=== PATIENT | male | born 1940 | race Caucasian/White ===

== ENCOUNTER 2016-06-09 09:31 | Inpatient (IN) | payer OTHER ==
[2016-06-09] MEDS ORDERED: ASPIRIN EC 325 MG TAB PO ONE (09:43)
[2016-06-09] MEDS ORDERED: FAMOTIDINE 20 MG TAB PO ONE (09:43)
[2016-06-09] MEDS ORDERED: diphenhydrAMINE 25 MG CAP PO ONE (09:43)
[2016-06-09] MEDS ORDERED: NS 1,000 ML IV ONE (09:43)
[2016-06-09] MEDS ORDERED: DIAZEPAM 5 MG TAB PO ONE (09:43)
--- NOTE | 2016-06-09 10:08 | CPEKG ---
Heart Rate: 69 RR Interval: 870 P-R Interval: 116 QRSD Interval: 114 QT Interval: 432 QTC Interval: 463 P [place]: -36 QRS [place]: -60 T Wave [place]: 55 EKG Severity - ABNORMAL ECG - EKG Impression: SINUS RHYTHM EKG Impression: LEFT ANTERIOR FASCICULAR BLOCK EKG Impression: LEFT VENTRICULAR HYPERTROPHY Electronically Signed By: Dustin Calix 09-Jun-2016 16:10:48
[2016-06-09 10:18] LABS: % IMMATURE GRANULYOCYTES 0.4 % (0.0-1.1); ABSOLUTE IMMATURE GRANULOCYTES 0.02 10^3/uL (0.00-0.10); ADD DIFF? NO; ADD MORPH? NO; ADD SCAN? NO; ATYPICAL LYMPHOCYTE FLAG 10 (0-99); FRAGMENT RBC FLAG 0 (0-99); HEMATOCRIT 47.2 % (40.0-51.0); HEMOGLOBIN 15.8 g/dL (13.7-17.5); LEFT SHIFT FLG 0 (0-99); LIPEMIA HEMOLYSIS FLAG 80 (0-99); MEAN CELL HEMOGLOBIN 31.7 pg (27.9-34.1); MEAN CELL HEMOGLOBIN CONCENTR. 33.5 g/dL (32.4-36.7); MEAN CELL VOLUME 94.6 fL (81.5-99.8); MEAN PLATELET VOLUME 11.2 fL (8.7-11.7); PLATELET CLUMPS FLAG 0 (0-99); PLATELET COUNT 178 10^3/uL (150-400); RED BLOOD CELL COUNT 4.99 10^6/uL (4.40-6.38); RED CELL DISTRIBUTION WIDTH 12.7 % (11.5-15.2)
[2016-06-09 10:27] LABS: PROTIME(PATIENT) 13.1 SEC (12.0-15.0)
[2016-06-09 10:53] LABS: ANION GAP 11 mEq/L (8-16); CALCIUM 9.9 mg/dL (8.5-10.4); CARBON DIOXIDE 23 mEq/l (22-31); CHLORIDE 109 mEq/L (97-110); CHOLESTEROL 229 mg/dL (140-220); CHOLESTEROL/HDL RATIO 4.49 RATIO (1.00-4.97); CREATININE 1.2 mg/dL (0.7-1.3); GLOMERULAR FILTRATION RATE 59; GLUCOSE 98 mg/dL (70-100); HIGH DENSITY LIPOPROTEIN 51 mg/dL (40-65); LDL/HDL RATIO 3.02 RATIO (1.00-3.64); LOW DENSITY LIPOPROTEIN 154 mg/dL (80-100); NON-HIGH DENSITY LIPOPROTEIN 178 mg/dL (90-129); POTASSIUM 4.4 mEq/L (3.5-5.2); SODIUM 143 mEq/L (134-144); TRIGLYCERIDE 123 mg/dL (40-150); VERY LOW DENSITY LIPOPROTEINS 24 mg/dL (8-25)
[2016-06-09] MEDS ORDERED: HEPARIN 10,000 UNIT/10 ML MDV ONE (11:55)
[2016-06-09] MEDS ORDERED: MIDAZOLAM 2 MG/2 ML VIAL ONE (11:55)
[2016-06-09] MEDS ORDERED: LIDOCAINE 1% 30 ML SDV ONE (11:55)
[2016-06-09] MEDS ORDERED: fentaNYL 100 MCG/2 ML INJ ONE (11:55)
[2016-06-09] MEDS ORDERED: VERAPAMIL 5 MG/2 ML VIAL ONE (11:55)
[2016-06-09] MEDS ORDERED: IOPAMIDOL (ISOVUE 370) 100 ML BTL IV ONE (11:56)
--- NOTE | 2016-06-09 13:33 | PDDXCAT ---
Diagnostic Cath Note - . Date: 06/09/16 Intervention: None Indication: CCS Class I Angina, elevated coronary calcium score. *Procedure 1. left heart catheterization 2. coronary angiography 3. left ventriculogram Access: Right radial artery. A plethysmography trace assisted Gilberto's Test was used to document dual artery supply to the right hand and index finger prior to access. *Materials Left Heart Cath size: 5F Left Heart Cath materials: JL3.5, JR4.0, pigtail *Findings-Left Heart Catheterization LM: The left main is 6 mm in size and bifurcates into an LAD and circumflex system. There is no evidence of flow-limiting disease. LAD: There is a 100% occlusion of the LAD after the first diagonal takeoff with AGUS 0 flow. LCX: There is a 70% proximal left circumflex lesion with AGUS III flow as well as a tight lesion (90%) in the beta branch of the circumflex obtuse marginal branch. RCA: The RCA is dominant and 3.5 mm in size proximally. There is a 90% mid right coronary lesion with AGUS III flow. There is diffuse calcific atherosclerosis throughout a right dominant system. EDP: 17 mmHg LVEF: 45-50% Left ventriculogram findings: Mild distal anterior and basal inferior hypokinesis consistent with ischemic cardiomyopathy. The visualized portion of the thoracic aorta revealed three sinuses of Valsalva. There is no [place] evidence of aneurysm or dissection. *Summary Complications: None Estimated blood loss: <50ml Closure method: TR Band Assessment: Severe and flow-limiting [place] vessel coronary artery disease including a 100% occlusion of the LAD after the first diagonal takeoff (AGUS 0) , 70% proximal left circumflex (AGUS III) as well as a tight lesion in the beta branch of the left circumflex obtuse marginal 90% (AGUS III flow). There was also a 90% mid right coronary artery lesion (AGUS III). The patient had mild distal anterior and basal inferior hypokinesis with an ejection fraction of 45- 50% consistent with an ischemic cardiomyopathy. Surgical consultation to discuss the risks and benefits of coronary artery bypass grafting is recommended (specifically, LICONA to the LAD and grafts to the diagonal, circumflex obtuse marginal alpha and beta branches as jump grafts and a graft to the PDA of the right coronary artery).
[2016-06-09] MEDS ORDERED: ONDANSETRON 4 MG/2 ML VIAL IVP PRN (16:58)
[2016-06-09] MEDS ORDERED: ATROPINE SULFATE 1 MG/10 ML SYR IVP PRN (16:58)
[2016-06-09] MEDS ORDERED: ACETAMINOPHEN 325 MG TAB PO PRN (16:58)
[2016-06-09] MEDS ORDERED: ONDANSETRON DISINTEGRATING 4 MG TAB PO PRN (16:58)
[2016-06-09] MEDS ORDERED: NITROGLYCERIN 0.4 MG BTL SL PRN (16:58)
[2016-06-09] MEDS ORDERED: NS 1,000 ML IV SCH (17:00)
--- NOTE | 2016-06-10 06:52 | CPEKG ---
Heart Rate: 62 RR Interval: 968 P-R Interval: 132 QRSD Interval: 114 QT Interval: 436 QTC Interval: 443 P [place]: -30 QRS [place]: -59 T Wave [place]: 29 EKG Severity - ABNORMAL ECG - EKG Impression: SINUS RHYTHM EKG Impression: LEFT ANTERIOR FASCICULAR BLOCK Electronically Signed By: Dustin Calix 10-Jun-2016 08:27:03
--- NOTE | 2016-06-10 09:16 | SOAPPROG ---
SOLUIS Progress Note Assessment/Plan: Assessment/Plan: Timothy is a 76 y/o M who presented to our office with syncope x3 with injury. He had a cardiac catherization and was found to have severe multivessel disease with a 100% LAD, 70% proximal LCX, and 90% mid RCA. He is scheduled for a CABG with Dr. Zacarias tomorrow morning. He denies any chest discomfort, DUONG, presyncope or syncope. He has been monitored on tele and has remained in NSR. 06/10/16 09:16 Subjective: Pt denies any chest pain, SOB, presyncope, or syncope. He has no complaints at this time. Objective: Vital Signs Temp Pulse Resp BP Pulse Ox 36.6 C 66 12 124/76 H 97 06/10/16 07:43 06/10/16 07:43 06/10/16 07:43 06/10/16 07:43 06/10/16 07:43 Laboratory Results 06/09/16 10:15 06/09/16 10:15 06/09/16 06/10/16 06/11/16 05:59 05:59 05:59 Intake Total 300 Output Total 700 Balance -400 PT 13.1 SEC (12.0-15.0) 06/09/16 10:15 INR 1.00 (0.83-1.16) 06/09/16 10:15 tele- NSR EKG- NSR with diffuse T wave changes and LAFB - Pending Discharge Pending Discharge Within 24 Hours: No Pending Discharge Within 48 Hours: No Physical Exam - Physical Exam General Appearance: WD/WN Respiratory: lungs clear, normal breath sounds, No crackles, No wheezing Cardiac/Chest: normal peripheral pulses, regular rate, rhythm, other (right wrist is clean intact without infection) Extremities: No pedal edema Neuro/Psych: oriented x 3 ICD10 Worksheet Patient Problems: Problems Problem Status Onset CAD (coronary artery disease) Acute - ICD10 Problem Qualifiers (1) CAD (coronary artery disease) Qualifiers: Coronary Disease-Associated Artery/Lesion type: C [place] vs. transplanted heart: N Associated angina: A
[2016-06-10] MEDS ORDERED: ZOLPIDEM TARTRATE 5 MG TAB PO PRN (15:20)
[2016-06-10 16:07] LABS: HEMOGLOBIN A1C 5.8 % (4.0-6.0)
--- NOTE | 2016-06-10 16:17 | GCON ---
[f rep st] CONSULTATION DATE OF CONSULTATION: 06/09/2016 REFERRING PHYSICIAN: Dr. Up Patient is seen at the request of Dr. Up with the patient's permission. IMPRESSION: 1. Severe 3 vessel disease with likely remote myocardial infarction presenting as syncope. 2. Status post bilateral knee replacement. 3. Bilateral carpal tunnel release. 4. Cataract surgery. 5. Hernia surgery. 6. Penile implant. 7. Hyperlipidemia. 8. Hearing loss. RECOMMENDATIONS: This gentleman should undergo coronary artery revascularization on this admission. He has no easily identifiable warning signs when he has any ischemic event except syncope, of whic h he has had 3 episodes. He has critical 3-vessel disease with moderate LV dysfunction, and is agre eable to staying for surgery. Risks and complications were reviewed at length in detail with the jarek heredia and his . Our intention is to use 2 internal mammary arteries and vein taken endoscopically. Quoted risk is 1 % or less for stroke, , infection. Bleeding is a 2% to 3% risk. CHIEF COMPLAINT: This is 76-year-old gentleman who is quite active playing tennis on a regular aggr essive basis competitively. He has had 3 episodes of syncope in the last year, and the last one bro ught him to the emergency room at which point he complained of having severe nausea and diaphoresis prior to it. During one of the episodes, the doctor was present and felt his pulse and reported he could not feel for one. The patient was barriga and clammy. He was taken to the ER at that time. Mos t recent episode occurred while he was sitting down. His reports he suddenly turned barriga and l ost consciousness with his eyes open. He has not had any chest pain, pressure tightness, shortness of breath or cardiac symptoms. PREVIOUS MEDICAL HISTORY: As stated above. PREVIOUS SURGERIES: As stated above. MEDICATIONS: On admission were ibuprofen. ALLERGIES: Niacin and sulfonamide which caused a rash. FAMILY HISTORY: Noncontributory. REVIEW OF SYSTEMS: At the present time, he is entirely asymptomatic. All 10 systems were interroga iveth. Carotid ultrasound shows a 70% right carotid lesion which was asymptomatic. SOCIAL HISTORY: He drinks alcohol socially, never in excess. He has never smoked. Does not use il licit substances. He is , retired and has 3 daughters, I believe. PHYSICAL EXAMINATION: GENERAL: This is a slender, tall, athletic elderly gentleman, appears younge r than stated age. HEENT: Normocephalic. PERRLA. EOMI. NECK: Without bruit, adenopathy or thyr omegaly. HEART: Rate is regular without murmur. LUNGS: Clear. CARDIOVASCULAR: Echocardiogram r eveals trace aortic insufficiency with an EF of 45%. ABDOMEN: Soft, nontender. Bowel sounds are a ctive. RECTAL/GENITAL: Deferred. EXTREMITIES: Pedal pulses are 2+ and symmetrical. There is no edema. No varicosities. /[id number]/MODL
[2016-06-10] MEDS: ALPRAZolam 0.25 MG TAB PO SCH ×2 (16:25→21:07)
[2016-06-10] MEDS: SENNOSIDES/DOCUSATE SODIUM TAB PO SCH (20:08)
[2016-06-10] MEDS ORDERED: CHLORHEXIDINE GLUC HIBICLENS 118 ML BTL TP SCH (21:00)
[2016-06-10] MEDS: MUPIROCIN 2% 22 GM OINT NS SCH (21:06)
--- NOTE | 2016-06-11 00:57 | ECHO ---
[id number] + + [address] : : [place] [address] : : [phone] + + Adult Echocardiographic Report + -----+ :Name: KIKA HOYT LStudy Date: 06/10/2016 02:25 PM : : Hospital Admission Number: [id number] Location : 215: :: 1940 Gender: Male Height: 75 in : :Age: 76 yrs Race: WH Weight: 220 lb : :Reason For Study: Eval LV and Valves : : BSA: 2.3 meters2 : :History: Pre Op CABG : + -----+ MMode/2D Measurements \T\ Calculations IVSd: 0.71 cm LVIDd: 4.7 cm FS: 20.7 % LVLd ap4: 8.1 cm LVPWd: 1.0 cm LVIDs: 3.8 cm EDV(Teich): 104.4 mlEDV(MOD-sp4): 107.0 ml ESV(Teich): 60.4 ml LVLs ap4: 7.7 cm EF(Teich): 42.2 % ESV(MOD-sp4): 63.0 ml EF(MOD-sp4): 41.1 % SV(MOD-sp4): 44.0 ml Normal Measurement Values: + + :LVIDd (3.5-5.7cm) IVSd (0.6-1.1cm) LVPWd (0.6-1.1cm) Aortic Root (2.0-3.7cm)Left Atrium (1.5-4.0cm): :LV Vol(d) (76-115ml) LV Vol(s) (29-48ml) Ejec Fraction (50-65%)PV Al (0.6- 1.2m/s) TV Al (0.4-1.0m/s) : :MV E Al (0.8-1.0m/s)MV A Al (0.3-1.0m/s)LVOT Al (0.7-1.2m/s) Asc Ao Al ( 0.9-1.8m/s) : + + Doppler Measurements \T\ Calculations MV E max al: Ao V2 max: AI max al: LV V1 max: 56.8 cm/sec 129.0 cm/sec 244.3 cm/sec 109.6 cm/sec MV A max al: Ao max PG: AI max P.9 mmHgLV V1 max P.6 cm/sec 6.7 mmHg AI dec slope: 4.8 mmHg MV E/A: 0.83 Ao mean P.9 cm/sec2 7.1 mmHg AI P1/2t: 530.4 msec Ao V2 mean: 125.5 cm/sec Ao V2 VTI: 38.4 cm PA V2 max: 101.8 cm/sec PA max P.1 mmHg Left Ventricle The left ventricle is normal in size. There is normal left ventricular wall thickness. Ejection Fraction = 50%. There is Doppler evidence for diastolic dysfunction. There is apical septal hypokinesis. Right Ventricle The right ventricle is normal in size and function. Atria The left atrial size is normal. Right atrial size is normal. Mitral Valve The mitral valve is normal in structure and function. There is no mitral valve stenosis. There is no mitral regurgitation noted. Tricuspid Valve Normal tricuspid valve. No tricuspid regurgitation. Aortic Valve Mild Aortic Valve Calcification. There is no aortic stenosis. Trace aortic regurgitation. Pulmonic Valve The pulmonic valve is normal in structure and function. There is no pulmonic valvular regurgitation. Great Vessels The aortic root is normal size. Pericardium/Pleural There is no pericardial effusion. Conclusion A complete two-dimensional transthoracic echocardiogram was performed (2D, M-mode, Doppler and color flow Doppler). Apical septal hypokinesis. Ejection Fraction = 50%. Trace aortic regurgitation. There is no pericardial effusion. Final Reading Physician: Sarkis Madden signed on 06/11/2016 12:55 AM Ordering Physician: Rebekah Reed Performed By: Rehan Thorpe, CS
[2016-06-11] MEDS ORDERED: PROTAMINE SULFATE 50 MG/5 ML VIAL IVP ONE (04:41)
[2016-06-11] MEDS ORDERED: CALCIUM CHLORIDE 1 GM/10 ML INJ ONE ×2 (04:41→06:56)
[2016-06-11] MEDS ORDERED: DOPamine/DEXTROSE/250 ML BAG IV ONE (04:42)
[2016-06-11] MEDS ORDERED: MILRINONE/DEXTROSE/100 ML BAG IV ONE (04:42)
[2016-06-11] MEDS ORDERED: AMINOCAPROIC ACID 5 GM/20 ML VIAL ONE ×2 (04:42→06:57)
[2016-06-11] MEDS ORDERED: NA BICARBONATE 50 MEQ/50 ML VIAL ONE (04:42)
[2016-06-11] MEDS ORDERED: POTASSIUM Cl (KCl) 20 MEQ/50 ML BAG IV ONE (04:42)
[2016-06-11] MEDS ORDERED: AMIODARONE HCL 150 MG/3 ML VIAL ONE ×2 (04:43→06:58)
[2016-06-11] MEDS ORDERED: niCARdipine/NACL/200 ML BAG IV ONE (04:43)
[2016-06-11] MEDS ORDERED: ADENOSINE 6 MG/2 ML VIAL ONE (04:43)
[2016-06-11] MEDS ORDERED: ceFAZolin 1 GM VIAL ONE (04:44)
[2016-06-11] MEDS ORDERED: HEPARIN 10,000 UNIT/10 ML MDV ONE ×2 (04:44→06:58)
[2016-06-11 05:56] LABS: ANION GAP 9 mEq/L (8-16); CALCIUM 9.6 mg/dL (8.5-10.4); CARBON DIOXIDE 21 mEq/l (22-31); CHLORIDE 110 mEq/L (97-110); CREATININE 1.1 mg/dL (0.7-1.3); GLOMERULAR FILTRATION RATE > 60; GLUCOSE 92 mg/dL (70-100); SODIUM 140 mEq/L (134-144)
[2016-06-11] MEDS ORDERED: NS 1,000 ML IV ONE (06:00)
[2016-06-11] MEDS ORDERED: MANNITOL 25% 12.5 GM/50 ML VIAL IV ONE ×2 (06:00→09:00)
[2016-06-11] MEDS ORDERED: AMINOCAPROIC ACID 5 GM/20 ML VIAL IV ONE ×2 (06:00→07:00)
[2016-06-11] MEDS ORDERED: CITRATE DEXTROSE SOLN 500 ML BAG MISC ONE ×2 (06:00)
[2016-06-11] MEDS ORDERED: PHENYLEPHRINE HCL 50 MG in NS 250 ML IV ONE (06:00)
[2016-06-11] MEDS ORDERED: NOREPINEPHRINE BITARTRATE 16 MG in NS 250 ML IV ONE (06:00)
[2016-06-11] MEDS ORDERED: INSULIN REGULAR HUMAN 100 UNIT in NS 100 ML IV ONE (06:00)
[2016-06-11] MEDS ORDERED: SODIUM BICARBONATE 20 MEQ, LIDOCAINE 1% 10 ML in NORMOSOL-R 1,000 ML MISC ONE (06:00)
[2016-06-11] MEDS ORDERED: niCARdipine/NACL 200 ML IV ONE (06:00)
[2016-06-11] MEDS ORDERED: ceFAZolin 2 GM/DEXTROSE 100 ML IV ONE (06:00)
[2016-06-11] MEDS ORDERED: VERAPAMIL 5 MG, NITROGLYCERIN 2.5 MG, HEPARIN 500 UNIT, SODIUM BICARBONATE 0.2 MEQ in L... MISC ONE (06:00)
[2016-06-11] MEDS ORDERED: ALBUMIN 5% 250 ML BOTTLE IV ONE (06:56)
[2016-06-11] MEDS ORDERED: LIDOCAINE 2% 100 MG/5 ML SYR IVP ONE (06:57)
[2016-06-11] MEDS ORDERED: methylPREDNISolone SOD SUCC 1 GM/8 ML VIAL ONE (06:58)
[2016-06-11] MEDS ORDERED: MAGNESIUM SULFATE 1 GM/2 ML VIAL ONE (06:58)
[2016-06-11] MEDS ORDERED: PAPAVERINE HCL 60 MG/2 ML SDV ONE (06:59)
[2016-06-11] MEDS ORDERED: SKIN ADHESIVE (DERMABOND) 1 EACH TP ONE (06:59)
[2016-06-11] MEDS ORDERED: VERAPAMIL 5 MG/2 ML VIAL ONE (06:59)
[2016-06-11] MEDS ORDERED: CEFAZOLIN 2 GM/DEXTROSE/100 ML BAG IV ONE (07:14)
[2016-06-11] MEDS ORDERED: MIDAZOLAM 2 MG/2 ML VIAL ONE (07:49)
[2016-06-11] MEDS ORDERED: MINERAL OIL 10 ML VIAL TP ONE (07:55)
[2016-06-11] MEDS ORDERED: fentaNYL 250 MCG/5 ML INJ ONE ×2 (07:57)
[2016-06-11] MEDS ORDERED: PROPOFOL/EMULSION 500 MG/50 ML BOTTLE IV ONE (07:58)
[2016-06-11] MEDS: ALPRAZolam 0.25 MG TAB PO SCH (12:09)
[2016-06-11] MEDS: SENNOSIDES/DOCUSATE SODIUM TAB PO SCH ×2 (12:10→20:59)
[2016-06-11] MEDS: MUPIROCIN 2% 22 GM OINT NS SCH ×2 (12:10→21:00)
[2016-06-11] MEDS ORDERED: MAGNESIUM SULF 2 GM/WATER 50 ML BAG IV ONE (12:22)
[2016-06-11] MEDS ORDERED: SUGAMMADEX SODIUM 200 MG/2 ML VIAL IVP ONE (12:26)
[2016-06-11] MEDS ORDERED: PROPOFOL 200 MG/20 ML VIAL ONE (12:30)
[2016-06-11] MEDS ORDERED: fentaNYL 100 MCG/2 ML INJ ONE (12:40)
[2016-06-11] MEDS ORDERED: METOCLOPRAMIDE 10 MG/2 ML VIAL IVP PRN (12:58)
[2016-06-11] MEDS ORDERED: PANTOPRAZOLE SODIUM 40 MG in NS 100 ML IV ONE (12:58)
[2016-06-11] MEDS ORDERED: BISACODYL 10 MG SUPP PR PRN (12:58)
[2016-06-11] MEDS ORDERED: SODIUM CL NASAL 45 ML BTL EACHNARE PRN (12:58)
[2016-06-11] MEDS ORDERED: LACTULOSE 20 GM/30 ML UDCUP PO PRN (12:58)
[2016-06-11] MEDS ORDERED: D50W 25 GM/50 ML SYR IVP PRN (12:58)
[2016-06-11] MEDS ORDERED: POTASSIUM Cl (KCl) 50 ML IV PRN (12:58)
[2016-06-11] MEDS ORDERED: MAGNESIUM SULF 2 GM/WATER 50 ML IV ONE (12:58)
[2016-06-11] MEDS ORDERED: POLYETHYLENE GLYCOL 3350 17 GM PKT PO PRN (12:58)
[2016-06-11] MEDS ORDERED: fentaNYL 100 MCG/2 ML INJ IVP PRN (12:58)
[2016-06-11] MEDS ORDERED: ACETAMINOPHEN 325 MG TAB PO PRN (12:58)
[2016-06-11] MEDS ORDERED: CEPACOL LOZENGE PO PRN (12:58)
[2016-06-11] MEDS ORDERED: MEPERIDINE 25 MG/ML SYR IVP PRN (12:58)
[2016-06-11] MEDS ORDERED: ACETAMINOPHEN 650 MG SUPP PR PRN (12:58)
[2016-06-11] MEDS ORDERED: MAGNESIUM HYDROXIDE 30 ML UDCUP PO PRN (12:58)
[2016-06-11] MEDS ORDERED: INSULIN REGULAR HUMAN 100 UNIT in NS 100 ML IV SCH (13:00)
[2016-06-11] MEDS ORDERED: NS 1,000 ML IV SCH (13:00)
[2016-06-11] MEDS ORDERED: KETOROLAC 30 MG/1 ML SDV ONE (13:33)
[2016-06-11 13:44] LABS: BASE EXCESS -7.6 mEq/L (-2.5-2.5); BICARBONATE 19 mEq/L (22-26); MEASURED OXYGEN SATURATION 94 % (92-95); PCO2 45 mmHg (34-38); PO2 85 mmHg (65-75); TCO2 21 mEq/L (23-27)
[2016-06-11 13:46] LABS: END TIDAL CO2 38; O2 CONCENTRATIION 100 % (0-100); P/F RATIO 85 RATIO; SIMV YES
[2016-06-11 13:47] LABS: PATIENT RATE 0; PRESSURE SUPPORT 7
--- NOTE | 2016-06-11 13:48 | POSTOPPROG ---
Post Op Note Date of Operation: 06/11/16 Surgeon: Rafael Zacarias Soaker Meat: Shelby Anesthesiologist: Anish Anesthesia: GET(General Endotracheal) Pre-op Diagnosis: ASHD, ischemic CM Procedure: CAB 5 [place]iggins Dg, Amelia-ramus, SVG- [id number], PDA, atriclip RO, EVH Inf/Abcess present in the surg proc area at time of surgery?: No EBL: 50-100 Drains: Other (3 blakes)
--- NOTE | 2016-06-11 14:30 | GCON ---
[f rep st] CONSULTATION PROTOTYPE SEWER CONSULTATION REASON FOR ADMISSION: Coronary artery disease, status post coronary artery bypass graft. HISTORY OF PRESENT ILLNESS: The patient is a 76-year-old white male with a past medical history inc luding hyperlipidemia, hearing loss and severe 3-vessel heart disease. He underwent coronary artery bypass graft today. He is currently sedated and on mechanical ventilation. All history is gleaned from the medical record. Apparently, he was in fairly good shape, plays tennis on a regular basis. He had several syncopal episodes over the last year. PAST MEDICAL HISTORY: Again significant for coronary artery disease, hyperlipidemia and hearing los s. PAST SURGICAL HISTORY: He has had bilateral knee replacements, carpal tunnel repair, cataract surge ry, hernia repair, and penile implant. ALLERGIES: Niacin and sulfonamides. MEDICATIONS: Ibuprofen. PHYSICAL EXAMINATION: VITAL SIGNS: Blood pressure is 120/69, pulse 67, respiration 18, temp is 36. 6, oxygen saturation 92% on room air. GENERAL: He is a well-developed, well-nourished 76-year-old white male who is sedated and on mechanical ventilation. HEENT: Eyes are PERRL, EOMI. Throat: En dotracheal tube is in good position. NECK: Supple. There is no cervical adenopathy. HEART: Regu lar rate and rhythm without murmurs, rubs or gallops. LUNGS: Diminished breath sounds, but no whee ze. ABDOMEN: Soft, nontender. Bowel sounds are present in all 4 quadrants. EXTREMITIES: No club darleen, cyanosis or edema. LABORATORIES: White count is 5.1, hemoglobin 15, hematocrit 47, platelet count is 178. INR is 1. Sodium is 140, potassium 5.0, chloride 110, CO2 is 21, BUN is 21, creatinine 1.1, glucose is 92. Ar terial blood gas pH is 7.25, pCO2 45, pO2 of 85, bicarb 21, oxygen saturation 94%. This is on IMV o f 16, tidal volume 650, +7 pressure support and +5 of PEEP. IMPRESSION: 1. Coronary artery disease, status post 5-vessel coronary artery bypass graft. 2. Respiratory failure. Stable on mechanical ventilation. 3. Hyperlipidemia. RECOMMENDATIONS: 1. Wean from mechanical ventilation as tolerated. 2. DVT and PE prophylaxis. Holding anticoagulation for now. 3. Stress ulcer prophylaxis. 4. Adequate pain control. 5. Early ambulation. 6. PT and OT. 7. Adequate nutrition. /[id number]/MODL
--- NOTE | 2016-06-11 14:30 | GOP ---
[f rep st] OPERATIVE REPORT DATE OF OPERATION: 06/11/2016 SURGEON: Rafael Zacarias DO PREOPERATIVE DIAGNOSIS: Arteriosclerotic heart disease with ischemic cardiomyopathy. POSTOPERATIVE DIAGNOSIS: Arteriosclerotic heart disease with ischemic cardiomyopathy. PROCEDURE PERFORMED: 1. Coronary artery bypass grafting x5 with the left internal mammary artery to the large diagonal. Right internal mammary artery via the transverse sinus to the ramus branch. Saphenous vein graft t o the 1st obtuse marginal, sequential 2nd obtuse marginal and saphenous vein graft to the posterior descending artery. 2. AtriClip application to the left atrial appendage. 3. Endoscopic vein harvest by Samir Ryan PA-C who first assisted throughout the entire proced ure. FINDINGS: Patient was noted to have severe 3-vessel disease after presenting with multiple episodes of syncope, diaphoresis and nausea. He underwent diagnostic left heart cath and because of critica l anatomy was referred for surgical revascularization. Please see cath report for details. He was consented for surgery, brought to the operating room, intubated and monitoring lines were placed. H e was prepped and draped in sterile classical manner. Both mammaries were harvested after a sternot torey and were excellent quality vessels with good flow as was the left greater saphenous vein harvest ed endoscopically by Samir Ryan PA-C who first assisted throughout the procedure. We then hep arinized the patient. Cannulated in standard fashion. Cardiopulmonary bypass was begun. A cardiop legic arrest was obtained with antegrade cardioplegia, topical hypothermia and systemic cooling. It should be noted, the patient had some hypokinesis of the anterior wall and overall ejection fractio n was diminished somewhat on preoperative echo consistent with prior myocardial infarction and ische blair cardiomyopathy. All vessels both distally and proximally performed with a cross-clamp on. The LAD was an atretic half a mm vessel in the distal 1/3 where it was not calcified and was not grafted . The diagonal was a 2.5 mm heavily calcified vessel. The 1st OM was a good quality vessel measuri ng 2 mm. The 1st and 2nd OM were 2 mm vessels and good quality. The PDA is a 2.5 mm diffusely dise ased vessel. We placed a 35 mm AtriClip on the left atrial appendage after excluding thrombosis on preoperative echo without difficulty. The cross-clamp was removed with suction on the ascending aor tic vent. Both mammaries were brought through the lateral pericardial incisions and the YOHAN was br ought beneath the aorta in the transverse sinus to the ramus branch. The patient was easily weaned from bypass. The heparin was reversed with protamine. The cannula was removed and oversewn. Two v entricular pacing wires, 2 pleural, 1 mediastinal drain were placed. The thymic fat and pericardium were closed. Chest was closed in standard fashion. The patient was returned to ICU in stable cond ition. DESCRIPTION OF PROCEDURE: /[id number]/MODL
[2016-06-11] MEDS: ALBUMIN 5% 250 ML IV PRN ×2 (14:48→22:37)
[2016-06-11] MEDS ORDERED: KETOROLAC 30 MG/1 ML SDV IVP ONE (15:00)
--- NOTE | 2016-06-11 15:01 | CPEKG ---
Heart Rate: 71 RR Interval: 845 P-R Interval: 184 QRSD Interval: 104 QT Interval: 448 QTC Interval: 487 P [place]: 42 QRS [place]: -48 T Wave [place]: 35 EKG Severity - ABNORMAL ECG - EKG Impression: SINUS RHYTHM EKG Impression: LEFT ANTERIOR FASCICULAR BLOCK Electronically Signed By: Dustin Calix 12-Jun-2016 09:15:44
[2016-06-11 15:34] LABS: BASE EXCESS -7.6 mEq/L (-2.5-2.5); BICARBONATE 18 mEq/L (22-26); MEASURED OXYGEN SATURATION 94 % (92-95); PCO2 37 mmHg (34-38); PO2 73 mmHg (65-75); TCO2 19 mEq/L (23-27)
[2016-06-11 15:35] LABS: CPAP YES; O2 CONCENTRATIION 40 % (0-100); P/F RATIO 183 RATIO
[2016-06-11 15:36] LABS: PATIENT RATE 18; PRESSURE SUPPORT 7
[2016-06-11] MEDS: ceFAZolin 2 GM in D5W 100 ML IV SCH ×2 (15:45→21:05)
[2016-06-11] MEDS ORDERED: ceFAZolin 2 GM/DEXTROSE 100 ML IV SCH (16:00)
[2016-06-11] MEDS ORDERED: FUROSEMIDE 20 MG/2 ML VIAL IVP ONE (19:30)
[2016-06-12] MEDS: HYDROCODONE/APAP 5/325 TAB PO PRN ×6 (00:24→21:57)
[2016-06-12 04:06] LABS: % IMMATURE GRANULYOCYTES 0.3 % (0.0-1.1); ABSOLUTE IMMATURE GRANULOCYTES 0.03 10^3/uL (0.00-0.10); ADD DIFF? NO; ADD MORPH? NO; ADD SCAN? NO; ATYPICAL LYMPHOCYTE FLAG 0 (0-99); FRAGMENT RBC FLAG 0 (0-99); HEMATOCRIT 36.7 % (40.0-51.0); HEMOGLOBIN 12.1 g/dL (13.7-17.5); LEFT SHIFT FLG 10 (0-99); LIPEMIA HEMOLYSIS FLAG 80 (0-99); MEAN CELL HEMOGLOBIN 32.4 pg (27.9-34.1); MEAN CELL VOLUME 98.4 fL (81.5-99.8); MEAN PLATELET VOLUME 12.1 fL (8.7-11.7); PLATELET CLUMPS FLAG 0 (0-99); PLATELET COUNT 117 10^3/uL (150-400); RED BLOOD CELL COUNT 3.73 10^6/uL (4.40-6.38); RED CELL DISTRIBUTION WIDTH 13.2 % (11.5-15.2)
[2016-06-12 04:44] LABS: ANION GAP 8 mEq/L (8-16); CALCIUM 8.6 mg/dL (8.5-10.4); CARBON DIOXIDE 21 mEq/l (22-31); CHLORIDE 112 mEq/L (97-110); CREATININE 1.2 mg/dL (0.7-1.3); GLOMERULAR FILTRATION RATE 59; GLUCOSE 105 mg/dL (70-100); POTASSIUM 4.6 mEq/L (3.5-5.2); SODIUM 141 mEq/L (134-144)
[2016-06-12] MEDS: ceFAZolin 2 GM in D5W 100 ML IV SCH ×3 (05:34→21:17)
[2016-06-12] MEDS: HEPARIN 5,000 UNIT/0.5 ML SYR SC SCH ×3 (05:35→21:12)
--- NOTE | 2016-06-12 05:57 | PDINTPN ---
Assistant [employer] Progress Note Assessment/Plan: Assessment/Plan: * CAD * S/P 5 vessel CABG * Chest tubes * Hyperlipidemia * Pain-moderately controlled * Resp-stable off vent * PT/OT * Ambulation Subjective: Awake and alert. Pain is mostly controlled. Objective: Vital Signs Temp Pulse Resp BP Pulse Ox 37.4 C 68 14 107/54 L 95 06/12/16 04:00 06/12/16 05:00 06/12/16 05:00 06/12/16 05:00 06/12/16 05:00 Laboratory Results 06/12/16 03:45 06/12/16 03:45 06/10/16 06/11/16 06/12/16 05:59 05:59 05:59 Intake Total 285 074 6167 Output Total 700 3070 Balance -400 900 -1098 PT 13.1 SEC (12.0-15.0) 06/09/16 10:15 INR 1.00 (0.83-1.16) 06/09/16 10:15 Physical Exam - Physical Exam General Appearance: WD/WN, alert, no apparent distress EENT: PERRL/EOMI Respiratory: crackles (few), No respiratory distress, No stridor, No wheezing Cardiac/Chest: normal peripheral pulses, regular rate, rhythm, systolic murmur Peripheral Pulses: 2+: carotid (R), carotid (L), femoral (R), femoral (L), dorsalis-pedis (R), dorsalis-pedis (L) Abdomen: normal bowel sounds, non-tender, soft Male Genitalia: deferred Rectal: deferred Skin: normal color, warm/dry Extremities: normal range of motion, non-tender, normal inspection, normal capillary refill Neuro/Psych: no motor/sensory deficits, alert, normal mood/affect, oriented x 3 ICD10 Worksheet Patient Problems: Problems Problem Status Onset CAD (coronary artery disease) Acute
[2016-06-12] MEDS: PANTOPRAZOLE SODIUM 40 MG TAB PO SCH (08:48)
[2016-06-12] MEDS: MUPIROCIN 2% 22 GM OINT NS SCH ×2 (08:49→21:48)
[2016-06-12] MEDS: SENNOSIDES/DOCUSATE SODIUM TAB PO SCH ×2 (08:49→21:03)
[2016-06-12] MEDS: ASPIRIN 81 MG CHEWABLE TAB PO SCH (08:49)
[2016-06-12] MEDS ORDERED: ASPIRIN 81 MG CHEWABLE TAB TUBE PRN (09:00)
--- NOTE | 2016-06-12 09:01 | SOAPPROG ---
SOAP Progress Note Assessment/Plan: POD #1 CABGx5 (LICONA-Diag, YOHAN-Ramus, SVG-OM1-OM2 (seq), SVG-PDA), AtriClip RO , EVH LLE h/o syncope/diaphoresis/nausea with severe 3VD s/p CABGx5. Weaned from CPB without need for pressors/inotropes/pacing. Extubated in ICU. - FC/AL out - CT to bulb suction - Metoprolol 12.5 BID - Transfer to PCU ICM, EF 45-50% - Lasix prn - BB ABLA without need for blood product transfusions - Stable 06/12/16 10:24 Subjective: Feels tired, bloated. Body hurts. Objective: Vital Signs Temp Pulse Resp BP Pulse Ox 37.5 C 70 12 132/62 H 98 06/12/16 08:00 06/12/16 08:00 06/12/16 08:00 06/12/16 08:00 06/12/16 08:00 Laboratory Results 06/12/16 03:45 06/12/16 03:45 06/11/16 06/12/16 06/13/16 05:59 05:59 05:59 Intake Total 900 1972 Output Total 3070 Balance 900 -1098 PT 13.1 SEC (12.0-15.0) 06/09/16 10:15 INR 1.00 (0.83-1.16) 06/09/16 10:15 Physical Exam - Physical Exam General Appearance: WD/WN, alert, no apparent distress EENT: No scleral icterus (R), No scleral icterus (L) Neck: normal inspection Respiratory: chest non-tender, lungs clear, normal breath sounds Cardiac/Chest: regular rate, rhythm Abdomen: non-tender, soft, No distended Skin: normal color, warm/dry Extremities: pedal edema (+1 B/L LE) Neuro/Psych: no motor/sensory deficits, alert, normal mood/affect, oriented x 3 ICD10 Worksheet Patient Problems: Problems Problem Status Onset Acute blood loss anemia Acute CAD (coronary artery disease) Acute Ischemic cardiomyopathy Acute S/P CABG x 5 Acute
[2016-06-12] MEDS ORDERED: FUROSEMIDE 40 MG/4 ML VIAL ONE (10:16)
[2016-06-12] MEDS ORDERED: FUROSEMIDE 40 MG/4 ML VIAL IVP ONE (10:18)
[2016-06-12] MEDS: traMADol 50 MG TAB PO PRN ×3 (11:21→21:11)
[2016-06-12] MEDS: METOPROLOL TARTRATE 25 MG TAB PO SCH ×2 (11:35→21:04)
[2016-06-12 13:18] LABS: POTASSIUM 4.4 mEq/L (3.5-5.2)
[2016-06-13] MEDS: HYDROCODONE/APAP 5/325 TAB PO PRN ×4 (02:54→20:06)
[2016-06-13] MEDS: HEPARIN 5,000 UNIT/0.5 ML SYR SC SCH ×3 (05:21→21:45)
[2016-06-13 05:45] LABS: % IMMATURE GRANULYOCYTES 0.7 % (0.0-1.1); ABSOLUTE IMMATURE GRANULOCYTES 0.08 10^3/uL (0.00-0.10); ADD DIFF? NO; ADD MORPH? NO; ADD SCAN? NO; ATYPICAL LYMPHOCYTE FLAG 0 (0-99); FRAGMENT RBC FLAG 0 (0-99); HEMATOCRIT 35.5 % (40.0-51.0); HEMOGLOBIN 11.5 g/dL (13.7-17.5); LEFT SHIFT FLG 20 (0-99); LIPEMIA HEMOLYSIS FLAG 80 (0-99); MEAN CELL HEMOGLOBIN 32.3 pg (27.9-34.1); MEAN CELL HEMOGLOBIN CONCENTR. 32.4 g/dL (32.4-36.7); MEAN CELL VOLUME 99.7 fL (81.5-99.8); MEAN PLATELET VOLUME 12.7 fL (8.7-11.7); PLATELET CLUMPS FLAG 0 (0-99); PLATELET COUNT 101 10^3/uL (150-400); RED BLOOD CELL COUNT 3.56 10^6/uL (4.40-6.38); RED CELL DISTRIBUTION WIDTH 13.3 % (11.5-15.2)
[2016-06-13 06:16] LABS: ANION GAP 6 mEq/L (8-16); CALCIUM 8.8 mg/dL (8.5-10.4); CARBON DIOXIDE 24 mEq/l (22-31); CHLORIDE 107 mEq/L (97-110); CREATININE 1.2 mg/dL (0.7-1.3); GLOMERULAR FILTRATION RATE 59; GLUCOSE 145 mg/dL (70-100); POTASSIUM 4.4 mEq/L (3.5-5.2); SODIUM 137 mEq/L (134-144)
[2016-06-13] MEDS: traMADol 50 MG TAB PO PRN ×2 (06:30→12:09)
[2016-06-13] MEDS: POTASSIUM CL 20 MEQ TAB PO SCH (08:41)
[2016-06-13] MEDS: SENNOSIDES/DOCUSATE SODIUM TAB PO SCH ×2 (08:41→20:06)
[2016-06-13] MEDS: METOPROLOL TARTRATE 25 MG TAB PO SCH ×2 (08:42→20:06)
[2016-06-13] MEDS: PANTOPRAZOLE SODIUM 40 MG TAB PO SCH (08:43)
[2016-06-13] MEDS: ASPIRIN 81 MG CHEWABLE TAB PO SCH (08:43)
[2016-06-13] MEDS: FUROSEMIDE 20 MG TAB PO SCH (08:44)
--- NOTE | 2016-06-13 13:21 | SOAPPROG ---
SOAP Progress Note Assessment/Plan: Assessment: POD#2 CABGx5 (LICONA-Diag, YOHAN-Ramus, SVG sequentially to OM1-OM2, SVG-PDA), AtriClip RO, EVH LLE Sx severe 3VD - s/p CABG w 2 arterial grafts. Stable early postop course. Rt pleural air leak controlled by suction. Secondary prevention w baby ASA, BB uptitrated as tolerated, and statin when eating well. ICM, EF 45-50% - No evidence postop decompensation. Actively diuresing modest volume overload. ACEI as allowed by BP and stability renal fx. Acute expected blood loss anemia - Stable. No blood products transfused. Plan: Pleurovac to waterseal. Consider removal of left pleural tube later today vs tomorrow. Wrap and cap Vwires. Inc activity and pulm toilet. Dispo - likely home in 2 days. 06/13/16 11:17 Subjective: Feels ok. Not much appetite but no nausea. Satisfactory analgesia. No acute concerns. Objective: Vital Signs Temp Pulse Resp BP Pulse Ox 36.4 C 94 18 141/87 H 93 06/13/16 12:00 06/13/16 12:00 06/13/16 12:00 06/13/16 12:00 06/13/16 12:00 Laboratory Results 06/13/16 05:30 06/13/16 05:30 06/12/16 06/13/16 06/14/16 05:59 05:59 05:59 Intake Total 1972 1170 Output Total 3070 3170 125 Balance -1098 -2000 -125 PT 13.1 SEC (12.0-15.0) 06/09/16 10:15 INR 1.00 (0.83-1.16) 06/09/16 10:15 HR controlled. No tachy. SBP on metoprolol generally 110s. Rt pl sally and ant mediastinal tube converted back to pleurovac yest for failure to hold suction. No overt PTX. Today's CXR-> no PTX, tubes in good position, mild left basilar atelectasis, min pulm vasc congestion. Pleurovac no air leak. Approaching preop wt. Stable labs. Physical Exam - Physical Exam General Appearance: alert, no apparent distress Respiratory: lungs clear (grossly), other (faint rt sided crepitus, blakes x 2 y -d to pleurovac, serosang drainage, no AL w cough; left sally to bulb suction, thin serosang drainage) Cardiac/Chest: regular rate, rhythm, friction rub, other (Sternum grossly stable. Sternotomy and LLE venotomy CDI. Vwire intact.) Abdomen: non-tender, soft Skin: warm/dry Extremities: swelling (1+ dependent) ICD10 Worksheet Patient Problems: Problems Problem Status Onset Acute blood loss anemia Acute CAD (coronary artery disease) Acute Ischemic cardiomyopathy Acute S/P CABG x 5 Acute
[2016-06-13] MEDS ORDERED: METOPROLOL TARTRATE 25 MG TAB PO ONE (16:17)
[2016-06-14] MEDS: traMADol 50 MG TAB PO PRN (00:54)
[2016-06-14] MEDS: HEPARIN 5,000 UNIT/0.5 ML SYR SC SCH ×2 (06:15→14:46)
[2016-06-14] MEDS: HYDROCODONE/APAP 5/325 TAB PO PRN ×2 (06:15→14:45)
[2016-06-14] MEDS: METOPROLOL TARTRATE 25 MG TAB PO SCH ×2 (08:56→20:39)
[2016-06-14] MEDS: ASPIRIN 81 MG CHEWABLE TAB PO SCH (08:56)
[2016-06-14] MEDS: FUROSEMIDE 20 MG TAB PO SCH (08:56)
[2016-06-14] MEDS: SENNOSIDES/DOCUSATE SODIUM TAB PO SCH ×2 (08:57→20:39)
[2016-06-14] MEDS: POTASSIUM CL 20 MEQ TAB PO SCH (08:57)
[2016-06-14] MEDS: PANTOPRAZOLE SODIUM 40 MG TAB PO SCH (08:57)
--- NOTE | 2016-06-14 09:58 | SOAPPROG ---
SOAP Progress Note Assessment/Plan: Assessment: POD#3 CABGx5 (LICONA-Diag, YOHAN-Ramus, SVG sequentially to OM1-OM2, SVG-PDA), AtriClip RO, EVH LLE Sx severe 3VD - s/p CABG w 2 arterial grafts. Stable early postop course. Left pleural tube and TCPWs out. Rt pleural air leak controlled by suction. Secondary prevention w baby ASA, statin, and BB uptitrated as tolerated. ICM, EF 45-50% - No evidence postop decompensation. Actively diuresing modest volume overload. ACEI as allowed by BP and stability renal fx. Acute expected blood loss anemia - Stable. No blood products transfused. Plan: Chest tubes clamped. Repeat CXR at noon. Tube removal if no PTX. Cont metoprolol 25 mg BID. Cont daily lasix 40mg/KCl 20mEq daily. Start Lipitor. Cont inc activity and pulm toilet. Dispo - likely home tomorrow or [place]. 06/14/16 09:54 Subjective: Feels fine. Ongoing gains in stamina. Intermittent rt flank (?tube) pain. Objective: Vital Signs Temp Pulse Resp BP Pulse Ox 36.7 C 75 20 110/66 94 06/14/16 08:00 06/14/16 08:00 06/14/16 08:00 06/14/16 08:00 06/14/16 08:00 Laboratory Results 06/13/16 05:30 06/14/16 06:10 06/13/16 06/14/16 06/15/16 05:59 05:59 05:59 Intake Total 1170 920 Output Total 3170 860 Balance -2000 60 PT 13.1 SEC (12.0-15.0) 06/09/16 10:15 INR 1.00 (0.83-1.16) 06/09/16 10:15 Cardioresp status stable. CTOP below removal criteria. No visible air leak and tubes clamped earlier this am. Excellent I/Os. Approaching preop wt. Physical Exam - Physical Exam General Appearance: alert, no apparent distress Respiratory: lungs clear, other (Blakes x 2 y-d to pleurovac, serosang drainage , no AL with vigorous cough and tubes clamped.) Cardiac/Chest: regular rate, rhythm Abdomen: non-tender, soft Skin: warm/dry Extremities: swelling (1+ vein donor leg) ICD10 Worksheet Patient Problems: Problems Problem Status Onset Acute blood loss anemia Acute CAD (coronary artery disease) Acute Ischemic cardiomyopathy Acute S/P CABG x 5 Acute
[2016-06-14] MEDS: APIXABAN 2.5 MG TAB PO SCH (20:39)
[2016-06-14] MEDS ORDERED: ATORVASTATIN CALCIUM 20 MG TAB PO SCH (21:00)
[2016-06-15] MEDS: HYDROCODONE/APAP 5/325 TAB PO PRN ×2 (03:26→14:11)
[2016-06-15 06:28] LABS: HEMATOCRIT 32.8 % (40.0-51.0); HEMOGLOBIN 10.9 g/dL (13.7-17.5); MEAN CELL HEMOGLOBIN 32.8 pg (27.9-34.1); MEAN CELL HEMOGLOBIN CONCENTR. 33.2 g/dL (32.4-36.7); MEAN CELL VOLUME 98.8 fL (81.5-99.8); RED BLOOD CELL COUNT 3.32 10^6/uL (4.40-6.38); RED CELL DISTRIBUTION WIDTH 13.2 % (11.5-15.2)
[2016-06-15 06:58] LABS: CALCIUM 8.9 mg/dL (8.5-10.4); CARBON DIOXIDE 28 mEq/l (22-31); CHLORIDE 105 mEq/L (97-110); CREATININE 1.1 mg/dL (0.7-1.3); GLOMERULAR FILTRATION RATE > 60; GLUCOSE 103 mg/dL (70-100); SODIUM 139 mEq/L (134-144)
[2016-06-15 07:13] LABS: ANION GAP 6 mEq/L (8-16)
[2016-06-15] MEDS: METOPROLOL TARTRATE 25 MG TAB PO SCH (08:20)
[2016-06-15] MEDS: ASPIRIN 81 MG CHEWABLE TAB PO SCH (08:20)
[2016-06-15] MEDS: FUROSEMIDE 20 MG TAB PO SCH (08:20)
[2016-06-15] MEDS: PANTOPRAZOLE SODIUM 40 MG TAB PO SCH (08:20)
[2016-06-15] MEDS: SENNOSIDES/DOCUSATE SODIUM TAB PO SCH (08:21)
[2016-06-15] MEDS: POTASSIUM CL 20 MEQ TAB PO SCH (08:21)
[2016-06-15] MEDS: APIXABAN 2.5 MG TAB PO SCH (08:21)
--- NOTE | 2016-06-15 08:59 | SOAPPROG ---
SOAP Progress Note Assessment/Plan: Assessment: POD#4 CABGx5 (LICONA-Diag, YOHAN-Ramus, SVG sequentially to OM1-OM2, SVG-PDA), AtriClip RO, EVH LLE Sx severe 3VD - s/p CABG w 2 arterial grafts. Stable early postop course. Left pleural tube and TCPWs out. Rt pleural air leak controlled by suction. Secondary prevention w baby ASA, statin, and BB uptitrated as tolerated. ICM, EF 45-50% - No evidence postop decompensation. Actively diuresing modest volume overload. ACEI as allowed by BP and stability renal fx. Acute expected blood loss anemia - Stable. No blood products transfused. Plan: Cont metoprolol 25 mg BID. Cont daily lasix. Cont Lipitor. Wean O2. Dispo - Home later today. 06/15/16 08:58 Subjective: Doing alright. Tolerating light activity without difficulty. Satisfying BM. Agreeable to going home. Objective: Vital Signs Temp Pulse Resp BP Pulse Ox 36.4 C 93 16 101/63 94 06/15/16 07:46 06/15/16 07:46 06/15/16 07:46 06/15/16 07:46 06/15/16 07:46 Laboratory Results 06/15/16 06:00 06/15/16 06:00 06/14/16 06/15/16 06/16/16 05:59 05:59 05:59 Intake Total 920 1300 Output Total 860 1660 Balance 60 -360 PT 13.1 SEC (12.0-15.0) 06/09/16 10:15 INR 1.00 (0.83-1.16) 06/09/16 10:15 Holding SR w PACs. Off O2 at rest. Nearing preop wt. Stable labs Physical Exam - Physical Exam General Appearance: alert, no apparent distress Respiratory: lungs clear Cardiac/Chest: regular rate, rhythm, other (Sternum grossly stable. Sternotomy and LLE venotomy CDI) Abdomen: non-tender, soft Skin: warm/dry Extremities: swelling (trace dependent) ICD10 Worksheet Patient Problems: Problems Problem Status Onset Acute blood loss anemia Acute CAD (coronary artery disease) Acute Ischemic cardiomyopathy Acute S/P CABG x 5 Acute
[2016-06-15 11:55] VITALS: BP 121/78; PULSE 91; RESP 18; TEMP 98.2; O2SAT 93
--- NOTE | 2016-06-15 16:22 | PDDCSUM ---
Discharge Summary Discharge Summary: DATE OF ADMISSION: 06/09/16 DATE OF DISCHARGE: 06/15/16 DISPOSITION: Home, self-care PRINCIPAL ADMISSION DIAGNOSIS: Atypical angina PRINCIPAL DISCHARGE DIAGNOSES: 1. Severe multivessel coronary artery disease. 2. Ischemic cardiomyopathy. 3. 50-70% right internal carotid artery stenosis. 4. Status post coronary artery bypass grafting x 5. 5. Status post prophylactic clip ligation of the left atrial appendage. 6. Acute expected blood loss anemia. 7. Postoperative paroxysmal atrial fibrillation. HISTORY OF PRESENT ILLNESS: 76 yo dyslipidemic male with an abnormal EKG (LAFB) and recurrent syncopal episodes associated with nausea and diaphoresis admitted for elective left heart catheterization. OTHER PAST MEDICAL HISTORY: Dyslipidemia managed with therapeutic lifestyle modifications; OA knees s/p bilateral TKAs; sensorineural hearing loss, compensated with bilateral hearing aids. MEDICATIONS ON ADMISSION: Ibuprofen 600 mg q6h prn ALLERGIES: Niacin and sulfonamide which caused rashes CONSULTANTS: CV surgery (Deann), Pulmonology/critical care (Diane) PROCEDURES/IMAGIN/16 (Annel): Left heart catheterization with selective coronary angiography and left ventriculogram. Access via right radial artery. 06/10 Carotid ultrasound. 06/10 (Yogi): Transthoracic echocardiogram. 06/11 (Deann): Coronary Artery Bypass Grafting x 5 (LICONA-D1, YOHAN-RI, SV sequentially to OM1 and OM2, SV-PDA). Takedown bilateral internal mammary arteries. Endoscopic vein harvest left lower leg. Prophylactic AtriClip ligation of the left atrial appendage. ABBREVIATED HOSPITAL COURSE: Found to have a right dominant coronary system with severe multivessel CAD ( including total occlusion of the proximal LAD), an LVEF ~50% with distal anterior and basilar inferior hypokinesis, and an LVEDP of 17. Referred for urgent surgical revascularization. Preop imaging negative for significant valvular dysfx or prohibitive neurologic risk, altho noted to have mild to moderate carotid atherosclerosis with up to a 70% CAITLIN stenosis. Taken to the OR on hospital day #2 where a 5 vessel CABG was completed with 2 arterial grafts and no apparent complications. Target vessels measured between 2 to 2.5 mm in diameter and bypassed with good quality conduit. Easily from CPB with preserved LV systolic fx. Transferred to the ICU in hemodynamically stable condition without need for vasoactive support, backup pacing, blood, or blood products. Postop course remarkable for frequent PACs and a single episode of atrial fibrillation responsive to increased beta blockade. Believed to be at risk of recurrent PAF and adjunctive Eliquis added for a [id number] score of 3. Lipitor started for elevated LDL as well as secondary prevention of vascular disease. Insufficient BP for ACEI. DISCHARGE CLINICAL INFORMATION: Sternum grossly stable. Sternotomy and LLE venotomy CDI, sutured, +Dermabond. HR 90s. SBP 100s-120s. SpO2 85% RA, correcting to 94% on 1 Lpm rest, and 93% on 2 Lpm activity. Weight 2 kg above admit at 97.8 kilos. WBC 8.2, Hgb 10.9, HCT 32.8, Plt 127, Na 139, K 4.0, Cr 1.1 Preop labs: TC 229, TG 123, LDL 154, HDL 51; Hgb A1c 5.8% DISCHARGE MEDICATIONS: Eliquis 2.5 mg BID x 1 month. ASA 81 mg daily. Lipitor 20 mg daily. Lasix 20 mg daily until back to baseline weight and no swelling. Klor-Con 10mEq daily with Lasix. Metoprolol 25 mg BID. Sabina 5/325 1/2 to 2 tabs q 4-6 hr prn incisional discomfort. O2 continuously @ 1 Lpm rest and 2 Lpm activity, or as directed by SpO2. FOLLOW UP APPOINTMENTS: 1. Cardiology: with Dr Up at [facility] in 4-6 weeks. Appointment to be established during surgical visit. Surveillance rhythm, statin tolerance, and carotid disease. Consideration ACEI. 2. CV surgery: with Dr Zacarias at [facility] on 06/28/16 at 9:30am. FOLLOW UP TESTING: Chest xray prior to surgical appointment.
== END 2016-06-15 15:00 | disposition home or self-care (01) | DRG 234 ==
LOC: FCATH 09:31 → F2W 16:40 → F2N 06-11 07:30 → F2W 06-12 15:07
PROVIDERS: ADMIT Internal Medicine Cardiovascular Disease; ATTEND Thoracic Surgery (Cardiothoracic Vascular Surgery)
PROC: B2111ZZ Fluoroscopy of Multiple Coronary Arteries using Low Osmolar Contrast (ICD-10-PCS; 2016-06-09)
PROC: B2151ZZ Fluoroscopy of Left Heart using Low Osmolar Contrast (ICD-10-PCS; 2016-06-09)
PROC: 4A023N7 Measurement of Cardiac Sampling and Pressure, Left Heart, Percutaneous Approach (ICD-10-PCS; 2016-06-09)
PROC: 02100Z8 Bypass Coronary Artery, One Artery from Right Internal Mammary, Open Approach (ICD-10-PCS; principal; 2016-06-11 08:00)
PROC: 02100Z9 Bypass Coronary Artery, One Artery from Left Internal Mammary, Open Approach (ICD-10-PCS; principal; 2016-06-11 08:00)
PROC: 06BQ4ZZ Excision of Left Saphenous Vein, Percutaneous Endoscopic Approach (ICD-10-PCS; principal; 2016-06-11 08:00)
PROC: 5A1221Z Performance of Cardiac Output, Continuous (ICD-10-PCS; principal; 2016-06-11 08:00)
PROC: 021209W Bypass Coronary Artery, Three Arteries from Aorta with Autologous Venous Tissue, Open Approach (ICD-10-PCS; principal; 2016-06-11 08:00)
PROC: 02L70ZK Occlusion of Left Atrial Appendage, Open Approach (ICD-10-PCS; principal; 2016-06-11 08:00)
DX: I25.118 Atherosclerotic heart disease of native coronary artery with other forms of angina pectoris (principal); I25.5 Ischemic cardiomyopathy; I65.21 Occlusion and stenosis of right carotid artery; D62 Acute posthemorrhagic anemia; I48.0 Paroxysmal atrial fibrillation; E78.5 Hyperlipidemia, unspecified; H90.3 Sensorineural hearing loss, bilateral; Z95.0 Presence of cardiac pacemaker; Z96.653 Presence of artificial knee joint, bilateral; Z97.4 Presence of external hearing-aid
CPT/HCPCS: 82947-QW; 97116-GP; 97162-GP; 97166-GO; 97535-GO; G8978-GP-CJ; G8979-GP-CI; G8987-GO-CK; G8988-GO-CI; G8989-GO-CI; J0153; J0282; J0690; J1265; J1644; J1815; J1885; J2001; J2150; J2250; J2260; J2370; J2440; J2704; J2720; J2930; J3010; P9041; Q9967

== ENCOUNTER → 2016-06-28 | Outpatient (CLI) | payer OTHER | LOC: FIMAGING 09:13 | PROVIDERS: ATTEND Physician Assistant Surgical | DX: J90 Pleural effusion, not elsewhere classified (principal); J98.11 Atelectasis; Z95.1 Presence of aortocoronary bypass graft ==

== ENCOUNTER 2016-10-05 09:40 | Day surgery (SDC) | payer OTHER ==
[2016-10-05] MEDS ORDERED: ASPIRIN EC 325 MG TAB PO ONE (09:44)
[2016-10-05] MEDS ORDERED: FAMOTIDINE 20 MG TAB PO ONE (09:44)
[2016-10-05] MEDS ORDERED: NS 1,000 ML IV ONE (09:44)
[2016-10-05] MEDS ORDERED: diphenhydrAMINE 25 MG CAP PO ONE (09:44)
[2016-10-05] MEDS ORDERED: DIAZEPAM 5 MG TAB PO ONE (09:44)
--- NOTE | 2016-10-05 10:05 | CPEKG ---
Heart Rate: 65 RR Interval: 923 P-R Interval: 148 QRSD Interval: 98 QT Interval: 416 QTC Interval: 433 P [place]: -21 QRS [place]: -59 T Wave [place]: 169 EKG Severity - ABNORMAL ECG - EKG Impression: SINUS RHYTHM EKG Impression: LEFT ANTERIOR FASCICULAR BLOCK EKG Impression: PROBABLE LVH WITH SECONDARY REPOL ABNRM Electronically Signed By: Edd Ruiz 05-Oct-2016 16:52:58
[2016-10-05] MEDS ORDERED: ASPIRIN 81 MG CHEWABLE TAB ONE (10:09)
[2016-10-05 10:22] LABS: % IMMATURE GRANULYOCYTES 0.5 % (0.0-1.1); ABSOLUTE IMMATURE GRANULOCYTES 0.04 10^3/uL (0.00-0.10); ADD DIFF? NO; ADD MORPH? NO; ADD SCAN? NO; ATYPICAL LYMPHOCYTE FLAG 0 (0-99); FRAGMENT RBC FLAG 0 (0-99); HEMATOCRIT 49.5 % (40.0-51.0); HEMOGLOBIN 16.8 g/dL (13.7-17.5); LEFT SHIFT FLG 0 (0-99); LIPEMIA HEMOLYSIS FLAG 90 (0-99); MEAN CELL HEMOGLOBIN 31.9 pg (27.9-34.1); MEAN CELL HEMOGLOBIN CONCENTR. 33.9 g/dL (32.4-36.7); MEAN CELL VOLUME 93.9 fL (81.5-99.8); MEAN PLATELET VOLUME 11.7 fL (8.7-11.7); PLATELET CLUMPS FLAG 0 (0-99); PLATELET COUNT 202 10^3/uL (150-400); RED BLOOD CELL COUNT 5.27 10^6/uL (4.40-6.38); RED CELL DISTRIBUTION WIDTH 13.1 % (11.5-15.2)
[2016-10-05 10:34] LABS: ANION GAP 13 mEq/L (8-16); CALCIUM 10.2 mg/dL (8.5-10.4); CARBON DIOXIDE 20 mEq/l (22-31); CHLORIDE 111 mEq/L (97-110); CHOLESTEROL 249 mg/dL (140-220); CHOLESTEROL/HDL RATIO 5.93 RATIO (1.00-4.97); CREATININE 1.4 mg/dL (0.7-1.3); GLOMERULAR FILTRATION RATE 49; GLUCOSE 100 mg/dL (70-100); HIGH DENSITY LIPOPROTEIN 42 mg/dL (40-65); INR 1.03 (0.83-1.16); LOW DENSITY LIPOPROTEIN 168 mg/dL (80-100); MAGNESIUM 2.2 mg/dL (1.6-2.3); NON-HIGH DENSITY LIPOPROTEIN 207 mg/dL (90-129); POTASSIUM 4.3 mEq/L (3.5-5.2); PROTIME(PATIENT) 13.4 SEC (12.0-15.0); SODIUM 144 mEq/L (134-144); TRIGLYCERIDE 197 mg/dL (40-150); VERY LOW DENSITY LIPOPROTEINS 39 mg/dL (8-25)
[2016-10-05] MEDS ORDERED: LIDOCAINE 1% 300 MG/30 ML SDV ONE (11:20)
[2016-10-05] MEDS ORDERED: fentaNYL 100 MCG/2 ML INJ ONE (11:21)
[2016-10-05] MEDS ORDERED: MIDAZOLAM 2 MG/2 ML VIAL ONE (11:21)
[2016-10-05] MEDS ORDERED: IOPAMIDOL (ISOVUE-370) 150 ML BTL IV ONE ×2 (11:22→12:56)
--- NOTE | 2016-10-05 16:05 | CPIP ---
[f rep st] INVASIVE CARDIAC PROCEDURE DATE OF PROCEDURE: 10/05/2016 PROCEDURE PERFORMED: 1. Selective coronary angiography. 2. Selective saphenous vein graft angiography to the right coronary artery, selective saphenous vei n graft angiography to the obtuse marginal 1 and 2. 3. Left internal mammary artery angiography to the left anterior descending diagonal. 4. Right internal mammary artery angiography to the ramus intermedius. 5. Left ventriculogram. 6. LINQ IQ insertion. The serial number of the device is [id number]. 7. Angio-Seal arteriotomy repair. COMPLICATIONS: None. INDICATION FOR THE PROCEDURE: Abnormal nuclear stress test with ejection fraction of 45% and a larg e reversible deficit involving the anterior wall and apex with corresponding wall motion abnormality suggestive of underlying ischemic cardiomyopathy in a patient with syncope. PROCEDURE IN DETAIL: After informed consent was obtained, n.p.o. status was confirmed, the region o f the right groin was cleaned, prepped, and draped in sterile fashion. Approximately 10 cc of 1% li docaine was utilized for local anesthesia. A micropuncture set was used to gain access to the right common femoral artery, and the patient underwent the previously-mentioned diagnostic procedure with the use of JL4 and R4 curved coronary catheters, as well as LMC catheter and a 6-Czech pigtail cat heter. Standard wire exchange technique was utilized for all catheter exchanges. The left main coronary lumen is approximately 8 mm in size and bifurcates to 6 mm in size. It trifu rcates into an LAD, ramus intermedius or high obtuse marginal, and circumflex obtuse marginal system . The proximal LAD is occluded after the first major diagonal take-off with evidence of competitive flow. The ramus intermedius has evidence of weak filling of the distal YOHAN graft, and there is co mpetitive flow within the distal first and second obtuse marginal branches. The LAD is subtotally o ccluded proximally prior to any septal or diagonal branches. The ramus intermedius is widely patent . The squaxin right coronary artery is severely diseased with evidence of competitive flow within the d istal PDA, with a relatively large saphenous vein graft. There is squaxin vessel disease which is cr itical in the mid segment of the RCA near the acute marginal branch. The saphenous vein graft angio graphy to the distal PDA shows a widely patent graft with good anastomosis at both the proximal sect ion near the aorta, and at the distal PDA with AGUS-3 flow into the PDA vessel distally. Saphenous vein graft as a jump graft to OM 1 and 2 is widely patent with excellent anastomosis in both section s and good and AGUS-3 flow. The LICONA angiography was accomplished with the JR4, reveals a widely pa tent and brisk flow to the LAD diagonal vessel with evidence of some retrograde perfusion of septal branches. A LICONA catheter was used to do a non-selective injection of the right subclavian artery, revealing a very atretic and small right internal mammary artery graft which is not developed well, but when tracked is still patent to the highest obtuse marginal, which is in effect a functional sebastian us vessel. The patient underwent left heart catheterization, demonstrating elevated left ventricular end-diasto lic pressure measured at 27 mmHg. The patient underwent left ventriculogram in the TIMMONS projection, demonstrating depressed left ventricular systolic function. Ejection fraction is 45%. Resting segm ental wall motion abnormalities involving the mid and distal anterior wall as well as the apex were noted. No significant mitral regurgitation or aortic stenosis was noted. FINAL IMPRESSION: 1. [place] vessel coronary disease with widely patent saphenous vein graft to the right coronary art anderson, posterior descending artery, circumflex, obtuse marginal 1 and 2, as well as widely patent left internal mammary artery to the left anterior descending diagonal. The right internal mammary arter y to the ramus intermedius vessel is somewhat atretic, but still patent. It probably did not develo p secondary to competitive flow. 2. The patient has an ischemic cardiomyopathy with ejection fraction of 45%, with distal anterior w all and apical hypokinesis. Given the patient's history of syncope, we elected to proceed with plac ement of a LINQ IQ device. Region of the left parasternal region was cleaned, prepped, and draped i n sterile fashion. Approximately 10 cc of 1% lidocaine was utilized for local anesthesia. A #10 bl raoul was used to sharply incise the skin. The blunt dissection devices provided with the LINQ IQ ins ertion kit were utilized to form a pocket just to the left of the sternum, near the second intercost al space, and the device was successfully placed with the injection tool. Local pressure was used f or hemostasis and the skin was closed with 3 interrupted rik with excellent wound apposition and hemostasis. The device will be set to detect sustained tachycardias above 150 and sustained bradyc ardias below 40, with pauses of longer than 6 seconds. This patient is at risk for sustained bradyc ardia or tachydysrhythmia on the basis of ischemic myopathy. If that is noted with associated synco pe, the patient may benefit from implantation of either a pacemaker or an automatic implantable card ioverter defibrillator. /[id number]/MODL
== END 2016-10-05 16:59 | disposition home or self-care (01) ==
LOC: FCATH 09:40
PROVIDERS: ATTEND Internal Medicine Cardiovascular Disease
DX: I25.10 Atherosclerotic heart disease of native coronary artery without angina pectoris (principal); R55 Syncope and collapse; I25.5 Ischemic cardiomyopathy; R94.39 Abnormal result of other cardiovascular function study; R94.31 Abnormal electrocardiogram [ECG] [EKG]; I10 Essential (primary) hypertension; Z95.1 Presence of aortocoronary bypass graft
CPT/HCPCS: C1760; C1764; J1644; J2250; J3010; Q9967

== ENCOUNTER → 2018-06-19 | Outpatient (CLI) | payer OTHER | LOC: FIMAGING 13:46 | PROVIDERS: ATTEND Internal Medicine Cardiovascular Disease | DX: I65.23 Occlusion and stenosis of bilateral carotid arteries (principal) ==

== ENCOUNTER → 2018-06-29 | Outpatient (CLI) | payer OTHER ==
[~2018-06-29] MED LIST: IOPAMIDOL (ISOVUE 370) 100 ML BTL IV ONE
== END ==
LOC: FIMAGING 14:47
PROVIDERS: ATTEND Internal Medicine Cardiovascular Disease
DX: I65.23 Occlusion and stenosis of bilateral carotid arteries (principal); I67.2 Cerebral atherosclerosis; G93.0 Cerebral cysts; E78.5 Hyperlipidemia, unspecified; Z86.73 Personal history of transient ischemic attack (TIA), and cerebral infarction without residual deficits
CPT/HCPCS: 70450; 70496; 70498; Q9967; 82565-PO

== ENCOUNTER 2018-07-24 12:53 | Inpatient (IN) | payer OTHER ==
[2018-07-24] MEDS ORDERED: ceFAZolin 2 GM/DEXTROSE 100 ML IV ONE (13:43)
[2018-07-24] MEDS ORDERED: LR 1,000 ML IV ONE (13:44)
[2018-07-24 14:48] LABS: PLATELET COUNT 171 10^3/uL (150-400)
--- NOTE | 2018-07-24 16:43 | ASMTCASEMG ---
Living Arrangements What is your living Answers: With Spouse arrangement? Who do you live with? Type Of Residence What kind of residence do Answers: House you live in? Discharge Plan Comments Coordination Status Comments Notes: Patient is a 78yo male who has carotid artery disease and comes to [facility] for a right carotid endarterectomy. No therapies ordered at this time. D/C plan TBD. CM will follow. Date Signed: 07/24/2018 04:43 PM Electronically Signed By:Kristen Colunga LCSW
[2018-07-24] MEDS ORDERED: MIDAZOLAM 2 MG/2 ML VIAL IVP ONE (17:14)
--- NOTE | 2018-07-24 17:15 | PDANEPAE ---
ANE Past Medical History - Cardiovascular History Hx Hypertension: Yes Hx Arrhythmias: No Hx Chest Pain: No Hx Coronary Artery / Peripheral Vascular Disease: Yes Hx CHF / Valvular Disease: No Hx Palpitations: No Cardiovascular History Comment: htn. cad. cabg x5v with Deann. hyperlipidemia. followed by [facility] - Pulmonary History Hx COPD: No Hx Asthma/Reactive Airway Disease: No Hx Recent Upper Respiratory Infection: No Hx Oxygen in Use at Home: No Hx Sleep Apnea: No Sleep Apnea Screening Result - Last Documented: Positive Pulmonary History Comment: rocio triggers - Neurologic History Hx Cerebrovascular Accident: No Hx Seizures: No Hx Dementia: No - Endocrine History Hx Diabetes: No - Renal History Hx Renal Disorders: No - Liver History Hx Hepatic Disorders: No - Neurological & Psychiatric Hx Hx Neurological and Psychiatric Disorders: No - Cancer History Hx Cancer: No - Congenital Disorder History Hx Congenital Disorders: No - GI History Hx Gastrointestinal Disorders: No - Other Health History Other Health History: bilateral hearing aides. wears reading glasses - Chronic Pain History Chronic Pain: No - Surgical History Prior Surgeries: 06/11/16 CABG x5v with Deann. bilateral carpal tunnel surgeries. cataract. hernia repair. bilateral knee replacements ANE Review of Systems Review of Systems: - Exercise capacity METS (RN): 4 METS ANE Patient History - Allergies Allergies/Adverse Reactions: niacin Allergy (Verified 07/23/18 17:45) Rash Sulfa (Sulfonamide Antibiotics) Allergy (Verified 07/23/18 17:45) Rash - Home Medications Home Medications: Cetirizine [ZyrTEC 10 mg (*)] 10 mg PO DAILY PRN 07/23/18 [Last Taken 07/22/18] Ezetimibe [Zetia 10 MG (*)] 10 mg PO DAILY 07/23/18 [Last Taken 07/23/18] Rosuvastatin Calcium [Crestor 10mg (RX)] 2.5 mg PO Q2D 07/23/18 [Last Taken 05/12] - NPO status NPO Since - Liquids (Date): 07/24/18 NPO Since - Liquids (Time): 09:00 NPO Since - Solids (Date): 07/23/18 NPO Since - Solids (Time): 20:00 - Smoking Hx Smoking Status: Never smoked - Family Anes Hx Family Hx Anesthesia Complications: none ANE Labs/Vital Signs - Labs Result Diagrams: 07/24/18 14:29 - Vital Signs Blood Pressure: 158/81 Heart Rate: 50 Respiratory Rate: 16 O2 Sat (%): 97 Height: 187.96 cm Weight: 97.522 kg ANE Physical Exam - Airway Neck exam: FROM Mallampati Score: Class 3 Mouth exam: normal dental/mouth exam - Pulmonary Pulmonary: no respiratory distress - Cardiovascular Cardiovascular: regular rate and rhythym - ASA Status ASA Status: III ANE Anesthesia Plan Anesthesia Plan: general endotracheal anesthesia Lines/Monitors: arterial line
[2018-07-24] MEDS ORDERED: PROTAMINE SULFATE 50 MG/5 ML VIAL IVP ONE (17:40)
[2018-07-24] MEDS ORDERED: BUPIVACAINE 0.5% 30 ML SDV ONE (17:40)
[2018-07-24] MEDS ORDERED: THROMBIN (BOVINE) 20,000 UNIT SPRAY TP ONE (17:40)
[2018-07-24] MEDS ORDERED: PROPOFOL 200 MG/20 ML VIAL ONE (17:41)
[2018-07-24] MEDS ORDERED: fentaNYL 100 MCG/2 ML INJ ONE ×3 (17:41→19:50)
[2018-07-24] MEDS ORDERED: ALBUTEROL HFA ANES ONLY 200 PUFFS/8.5 GM MDI IH ONE (17:41)
[2018-07-24] MEDS ORDERED: LIDOCAINE 2% 100 MG/5 ML SYR ONE (17:42)
[2018-07-24] MEDS ORDERED: ROCURONIUM 50 MG/5 ML VIAL ONE ×2 (17:42→19:16)
[2018-07-24] MEDS ORDERED: HEPARIN 10,000 UNIT/10 ML MDV (1,000 UNIT/ML) ONE (17:42)
[2018-07-24] MEDS ORDERED: DEXAMETHASONE 4 MG/ML VIAL ONE ×2 (17:42)
--- NOTE | 2018-07-24 17:56 | PDHPUP ---
History & Physical Update H&P update statement: This history and physical update is based on an assessment of the patient which was completed after admission or registration (within 24 hours), but prior to the surgery/procedure. H&P update: H&P reviewed & patient examined, no change in patient's condition since H&P completed
[2018-07-24] MEDS ORDERED: ONDANSETRON 4 MG/2 ML VIAL ONE (18:50)
[2018-07-24] MEDS ORDERED: GLYCOPYRROLATE 0.2 MG/1 ML VIAL ONE ×2 (19:46)
[2018-07-24] MEDS ORDERED: NEOSTIGMINE METHYLSULFATE 5 MG/5 ML SYR ONE (19:46)
[2018-07-24] MEDS ORDERED: OXYCODONE/APAP 5/325 TAB PO PRN (19:58)
[2018-07-24] MEDS ORDERED: ONDANSETRON 4 MG/2 ML VIAL IVP PRN ×2 (19:58→20:23)
[2018-07-24] MEDS ORDERED: CETIRIZINE 10 MG TAB PO PRN (19:58)
[2018-07-24] MEDS ORDERED: HYDROmorphONE/DILAUDID 1 MG/ML INJ IVP PRN (19:58)
[2018-07-24] MEDS ORDERED: ENALAPRILAT DIHYDRATE 1.25 MG/ML VIAL IVP PRN (19:59)
--- NOTE | 2018-07-24 20:01 | POSTOPPROG ---
Post Op Note Date of Operation: 07/24/18 Surgeon: Kelvin Merlos Product Support Analyst: Diane Dacosta Anesthesiologist: Ryan Lovelace Anesthesia: GET(General Endotracheal) Pre-op Diagnosis: R critical carotid stenosis Post-op Diagnosis: same Procedure: R CEA c EEG monitoring and patch closure, cervical LN bx Findings: no EEG changes, tight ulcerated focal plaque c tortuous ICA Inf/Abcess present in the surg proc area at time of surgery?: No EBL: 50-100 Complications: none Bowel Protocol: N/A Clean Closure Performed: N/A Specimen(s): plaque and LN to path
[2018-07-24] MEDS ORDERED: NALOXONE HCL 0.4 MG/ML INJ IVP PRN (20:23)
[2018-07-24] MEDS ORDERED: fentaNYL 100 MCG/2 ML INJ IVP PRN (20:23)
[2018-07-24] MEDS ORDERED: ALBUTEROL 3 ML DEYVIAL IH PRN (20:23)
--- NOTE | 2018-07-24 20:25 | POSTANESTH ---
Post Anesthetic Evaluation Cardiovascular Status: Similar to Pre-Op Cond Respiratory Status: Similar to Pre-op Cond. Level of Consciousness/Mental Status: Alert and Oriented Pain Control: Adequate, Prn Tx Ordered Nausea/Vomiting Control: Adequate, Prn Tx Ordered Complications Possibly Related to Anesthesia: None Noted
[2018-07-24] MEDS: NS 1,000 ML IV SCH (20:26)
[2018-07-24] MEDS: METOPROLOL TARTRATE 25 MG TAB PO SCH (20:49)
--- NOTE | 2018-07-24 21:20 | PDMN ---
Medical Necessity Medical necessity: Pt meets inpt criteria per MD order and [facility] [place] [place] S-300, Carotid Endarterectomy, IP only list. 78 y/o w/R critical carotid stenosis admitted for R CEA w/EEG monitoring and patch closure, cervical LN bx, and post-op care, ICU. PMHx includes flow limiting CAD, s/p CABG, hyperlipidemia, [place].
[2018-07-25] MEDS: NS 1,000 ML IV SCH (06:11)
[2018-07-25] MEDS ORDERED: ROSUVASTATIN CALCIUM 10 MG TAB PO SCH (09:00)
[2018-07-25] MEDS ORDERED: ASPIRIN 81 MG CHEWABLE TAB PO SCH (09:00)
[2018-07-25] MEDS ORDERED: EZETIMIBE 10 MG TAB PO SCH (09:00)
[2018-07-25] MEDS: METOPROLOL TARTRATE 25 MG TAB PO SCH (09:27)
[2018-07-25 10:38] VITALS: BP 129/79
[2018-07-25] MEDS ORDERED: ASPIRIN 325 MG TAB PO ONE (10:47)
--- NOTE | 2018-07-25 11:11 | SOAPPROG ---
SOAP Progress Note Assessment/Plan: Assessment/Plan: 78 Y M s/p R CEA, POD#1. Doing well. BP ok. Wounds intact. Min swelling. Neuro grossly intact. Eager to go home. Dispo: home today. Discussed limitations. Adult ASA daily at least until f/u. 07/25/18 11:10 Objective: Vital Signs Temp Pulse Resp BP Pulse Ox 37.1 C 65 18 129/79 H 93 07/25/18 08:00 07/25/18 10:00 07/25/18 10:00 07/25/18 10:00 07/25/18 10:00 Laboratory Results 07/25/18 04:05 07/25/18 04:05 07/24/18 07/25/18 07/26/18 05:59 05:59 05:59 Intake Total 1439 Output Total 700 Balance 739 ICD10 Worksheet Patient Problems: Problems Problem Status Onset Acute blood loss anemia Acute CAD (coronary artery disease) Acute Ischemic cardiomyopathy Acute S/P CABG x 5 Acute
[2018-07-26] MEDS ORDERED: ENOXAPARIN 40 MG/0.4 ML SYR SC SCH (09:00)
--- NOTE | 2018-07-28 15:22 | GOP ---
[f rep st] OPERATIVE REPORT DATE OF OPERATION: 07/24/2018 SURGEON: Kelvin Merlos MD BPM ARCHITECT: KYLE Gregory. ANESTHESIOLOGIST: Dr. Lovelace. PREOPERATIVE DIAGNOSIS: Critical right carotid stenosis and history of transient ischemic attacks. POSTOPERATIVE DIAGNOSIS: Critical right carotid stenosis and history of transient ischemic attacks. PROCEDURE PERFORMED: Right carotid endarterectomy with EEG monitoring and cervical lymph node biopsy . FINDINGS: The patient found to have no EEG changes during the procedure. Had a very tight ulcerated focal plaque at the origin of the right internal carotid artery and a very tortuous internal carotid artery. He also had a 2 cm enlarged cervical node over the bifurcation. ESTIMATED BLOOD LOSS: Less than 75 mL. DESCRIPTION OF PROCEDURE: The patient was taken to the operating room where he received a satisfacto ry general endotracheal anesthesia by Dr. Lovelace. He was placed in the slight beach chair position , prepped and draped in the usual sterile fashion. The patient was systemically heparinized prior to induction of anesthesia. Incision was made along the anterior border of the sternocleidomastoid mus js and dissection was carried down through the platysma and subcutaneous tissue and then through the superficial fascia. The carotid arterial tree was exposed. The facial vein was multiply ligated an d divided giving us access to the carotid bifurcation. A large node was dissected free and removed. Hemostasis was obtained with hemoclips and electrocautery. The hypoglossal nerve was identified and freed up spared from injury. The digastric tendon was partly divided to allow better exposure of th e distal internal carotid artery. The common carotid, internal carotid, and external carotid arterie s were all dissected free and controlled with vessel loops, as well as the inferior thyroid artery. After adequate exposure, the patient was given additional heparin. After adequate circulation time, the vessels were cross clamped with the vessel loops. Arteriotomy was made in the common carotid art anderson and extended up through the ulcerated plaque into the internal carotid artery. Good backflow was present in the internal carotid. There were no EEG changes. An expeditious endarterectomy was then done removing the plaque with a good feathered end at the dist al internal carotid incision. All debris in the artery was irrigated out and removed. All vessels w ere flushed. The arteriotomy was then closed with a Hemashield patch using a running Hemashield 7 fay ture. Flow was first established through the external carotid artery and then through the internal c arotid. With good flow, there was no thrill in the artery and there was excellent pulsation in the i nternal carotid cephalad. The suture line was hemostatic. The wound was irrigated. Heparin was rev ersed with protamine. The wound was sprayed with some topical thrombin and closed in layers using 3- 0 Vicryl for the cervical fascia, 3-0 Vicryl for the platysma and subcutaneous tissue and 3-0 Monocry l subcuticular stitch for the skin. The posterior layers were infiltrated with 0.5% Marcaine. He to lerated the procedure well. There were no complications. Copy requested to: Belinda Ragsdale MD /[id number]/MODL
== END 2018-07-25 12:00 | disposition home or self-care (01) | DRG 39 ==
LOC: F2W 12:53 → F2N 13:37
PROVIDERS: ADMIT Surgery; ATTEND Surgery
DX: I65.21 Occlusion and stenosis of right carotid artery (principal); I25.10 Atherosclerotic heart disease of native coronary artery without angina pectoris; Z95.1 Presence of aortocoronary bypass graft; E78.5 Hyperlipidemia, unspecified; I10 Essential (primary) hypertension; G47.33 Obstructive sleep apnea (adult) (pediatric); Z96.653 Presence of artificial knee joint, bilateral
CPT/HCPCS: C1768; J0690; J1100; J1644; J2001; J2250; J2405; J2704; J2710; J2720; J3010

== ENCOUNTER 2018-08-07 09:25 | Day surgery (SDC) | payer OTHER ==
[2018-08-07] MEDS ORDERED: ceFAZolin 2 GM/DEXTROSE 100 ML IV ONE (09:53)
[2018-08-07] MEDS ORDERED: LR 1,000 ML IV ONE (09:53)
--- NOTE | 2018-08-07 09:54 | POSTANESTH ---
Post Anesthetic Evaluation Cardiovascular Status: Normal, Stable Respiratory Status: Normal, Stable Level of Consciousness/Mental Status: Can Participate in Eval, Mildly Sleepy, Arousable Pain Control: Adequate, Prn Tx Ordered Nausea/Vomiting Control: Adequate, Prn Tx Ordered Complications Possibly Related to Anesthesia: None Noted
[2018-08-07] MEDS ORDERED: BUPIVACAINE 0.5% 30 ML SDV ONE ×2 (09:59→10:55)
--- NOTE | 2018-08-07 10:16 | PDANEPAE ---
ANE History of Present Illness 78 yo male s/p recent R CEA now for RIH repair, possible B. ANE Past Medical History - Cardiovascular History Hx Hypertension: Yes Hx Arrhythmias: No Hx Chest Pain: No Hx Coronary Artery / Peripheral Vascular Disease: Yes Hx CHF / Valvular Disease: No Hx Palpitations: No Cardiovascular History Comment: LINQ RECORDER. htn. cad. cabg x5v with Deann R CEA 08/10. hyperlipidemia. followed by [facility] - Pulmonary History Hx COPD: No Hx Asthma/Reactive Airway Disease: No Hx Recent Upper Respiratory Infection: No Hx Oxygen in Use at Home: No Hx Sleep Apnea: No Sleep Apnea Screening Result - Last Documented: Positive Pulmonary History Comment: rocio triggers - Neurologic History Hx Cerebrovascular Accident: No Hx Seizures: No Hx Dementia: No - Endocrine History Hx Diabetes: No Hypothyroid: No Hyperthyroid: No Obesity: no - Renal History Hx Renal Disorders: No - Liver History Hx Hepatic Disorders: No - Neurological & Psychiatric Hx Hx Neurological and Psychiatric Disorders: No - Cancer History Hx Cancer: No - Congenital Disorder History Hx Congenital Disorders: No - GI History Hx Gastrointestinal Disorders: No - Other Health History Other Health History: bilateral hearing aides. wears reading glasses - Chronic Pain History Chronic Pain: No - Surgical History Prior Surgeries: CEA R 07/24/18. 06/11/16 CABG x5v with Deann. bilateral carpal tunnel surgeries. cataract. hernia repair. bilateral knee replacements ANE Review of Systems Review of Systems: - Exercise capacity METS (RN): 4 METS - Systems Constitutional: Reports: no symptoms Cardiac: Reports: no symptoms Respiratory: Reports: no symptoms Gastrointestinal: Reports: no symptoms ANE Patient History - Allergies Allergies/Adverse Reactions: niacin Allergy (Verified 07/23/18 17:45) Rash Sulfa (Sulfonamide Antibiotics) Allergy (Verified 07/23/18 17:45) Rash - Home Medications Home medications: home medication list seen and reviewed Home Medications: Cetirizine [ZyrTEC 10 mg (*)] 10 mg PO DAILY PRN 07/23/18 [Last Taken 08/01/18] Ezetimibe [Zetia 10 MG (*)] 10 mg PO DAILY 07/23/18 [Last Taken 08/06/18] Rosuvastatin Calcium [Crestor] 2.5 mg PO Q2D 07/23/18 [Last Taken 08/06/18] - NPO status NPO Since - Liquids (Date): 08/07/18 NPO Since - Liquids (Time): 06:30 NPO Since - Solids (Date): 08/06/18 NPO Since - Solids (Time): 22:00 - Anes Hx Anes Hx: no prior problems - Smoking Hx Smoking Status: Never smoked Marijuana use: No - Alcohol Use Alcohol Use: Occasionally - Family Anes Hx Family Anes Hx: neg - N/A Family Hx Anesthesia Complications: none ANE Labs/Vital Signs - Vital Signs Blood Pressure: 147/86 Heart Rate: 58 Respiratory Rate: 18 O2 Sat (%): 97 Height: 187.96 cm Weight: 97.522 kg ANE Physical Exam - Airway Neck exam: FROM Mallampati Score: Class 3 - Pulmonary Pulmonary: clear to auscultation - Cardiovascular Cardiovascular: regular rate and rhythym - ASA Status ASA Status: II ANE Anesthesia Plan Anesthesia Plan: general endotracheal anesthesia
[2018-08-07] MEDS ORDERED: LIDOCAINE 2% 2 ML INJ ONE (11:00)
[2018-08-07] MEDS ORDERED: DEXAMETHASONE 4 MG/ML VIAL ONE (11:00)
[2018-08-07] MEDS ORDERED: fentaNYL 100 MCG/2 ML INJ ONE ×2 (11:00)
[2018-08-07] MEDS ORDERED: ROCURONIUM 50 MG/5 ML VIAL ONE (11:00)
[2018-08-07] MEDS ORDERED: PROPOFOL 200 MG/20 ML VIAL ONE (11:01)
[2018-08-07] MEDS ORDERED: KETOROLAC 30 MG/1 ML SDV ONE (11:35)
[2018-08-07] MEDS ORDERED: HEPARIN 1000 UNIT/1 ML MDV ONE (11:47)
[2018-08-07] MEDS ORDERED: ceFAZolin 1 GM/5 ML SYR ONE (11:48)
[2018-08-07] MEDS ORDERED: ALBUTEROL 3 ML DEYVIAL IH PRN (12:30)
[2018-08-07] MEDS ORDERED: fentaNYL 100 MCG/2 ML INJ IVP PRN (12:30)
[2018-08-07] MEDS ORDERED: LR 250 ML IV PRN (12:30)
[2018-08-07] MEDS ORDERED: PROMETHAZINE HCL 25 MG/ML INJ IVP PRN (12:30)
[2018-08-07] MEDS ORDERED: oxyCODONE IR 5 MG TAB PO PRN (12:30)
[2018-08-07] MEDS ORDERED: ACETAMINOPHEN 500 MG TAB PO PRN (12:30)
[2018-08-07] MEDS ORDERED: ONDANSETRON 4 MG/2 ML VIAL IVP PRN (12:30)
[2018-08-07] MEDS ORDERED: NALOXONE HCL 0.4 MG/ML INJ IVP PRN (12:30)
[2018-08-07] MEDS ORDERED: NEOSTIGMINE METHYLSULFATE 5 MG/5 ML SYR ONE (12:37)
[2018-08-07] MEDS ORDERED: GLYCOPYRROLATE 0.2 MG/1 ML VIAL ONE (12:37)
--- NOTE | 2018-08-07 12:44 | POSTOPPROG ---
Post Op Note Date of Operation: 08/07/18 Surgeon: Kelvin Merlos [employer] [facility] [employer] Supervisor: Diane WITT Anesthesia: GET(General Endotracheal) Pre-op Diagnosis: RIH Post-op Diagnosis: BIH Procedure: lap BIH repair c mesh Findings: +R sided scarring, penile valve seen, old mesh, large RIH, small direct LIH Inf/Abcess present in the surg proc area at time of surgery?: No EBL: Minimal Complications: none Bowel Protocol: N/A Clean Closure Performed: N/A Specimen(s): none
[2018-08-07 13:37] VITALS: BP 128/78
--- NOTE | 2018-08-10 10:21 | GOP ---
[f rep st] OPERATIVE REPORT DATE OF OPERATION: 08/07/2018 SURGEON: Kelvin Merlos MD [employer]ILRO[employer] DISPATCHER: SHERRY Peters. ANESTHESIOLOGIST: Dr. Reyes. PREOPERATIVE DIAGNOSIS: Right inguinal hernia. POSTOPERATIVE DIAGNOSIS: Bilateral inguinal hernias PROCEDURE PERFORMED: Laparoscopic bilateral inguinal hernia repairs with mesh, recurrent on the righ t. FINDINGS: The patient was found to have a right-sided recurrent hernia with marked scarring. 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 He had a large right inguinal hernia on the left. He had a small direct left inguinal hernia. DESCRIPTION OF PROCEDURE: The patient was taken to the operating room where he received satisfactory general endotracheal anesthesia and he was prepped and draped in the usual sterile fashion. An infr aumbilical incision was made. Dissection was carried down to the rectus sheath, which was incised. A subfascial tunnel was developed in the preperitoneal space. That was dissected free with a balloon dissector, which was replaced with CO2 insufflation trocar. Two other trocars were placed in the lo wer midline under direct vision. The hernia sac was dissected free in the right inguinal area. It w as markedly scarred in. Dissection was somewhat difficult and tedious, working around the penile pro sthesis as well. Laterally, some old mesh from a previous hernia repair was encountered and this was trimmed away. Hemostasis was assured. Cord was mobilized. There was no significant indirect sac. A Covidien polyester mesh patch was introduced and placed over the inguinal floor. It was anchored in place with AbsorbaTack, securing it to Agapito ligament, the lacunar ligament, the anterior abdomin al wall and the lateral abdominal wall outside the internal ring. Hemostasis was assured. Attention was turned to the left side, where his [id number] direct defect was encountered. This was fr eed up, its contents reduced. The cord was mobilized. Peritoneum was dissected off the cord structu res. There were no indirect sacs. Again, a Covidien polyester mesh patch was placed over the inguin al floor and anchored in place with AbsorbaTack in a similar manner, securing it to Agapito ligament, to the lacunar ligament, to the anterior abdominal wall and the lateral abdominal wall outside the in ternal ring. Pneumoperitoneum was released. Trocars removed under direct vision. Trocar sites were closed with 0 Vicryl for the fascia, 4-0 Monocryl subcuticular stitch for the skin. All layers infi ltrated with 0.5% Marcaine. He tolerated the procedure well. He was taken to the recovery room in g ood condition. /[id number]/MODL
== END 2018-08-07 13:40 | disposition home or self-care (01) ==
LOC: FSGY 09:25
PROVIDERS: ATTEND Surgery
PROC: 0YUA4JZ Supplement Bilateral Inguinal Region with Synthetic Substitute, Percutaneous Endoscopic Approach (ICD-10-PCS; principal; 2018-08-07 10:15)
DX: K40.21 Bilateral inguinal hernia, without obstruction or gangrene, recurrent (principal); I10 Essential (primary) hypertension; I25.10 Atherosclerotic heart disease of native coronary artery without angina pectoris; Z95.1 Presence of aortocoronary bypass graft; E78.5 Hyperlipidemia, unspecified; Z96.653 Presence of artificial knee joint, bilateral
CPT/HCPCS: C1727; C1781; J0690; J1100; J1885; J2704; J2710; J3010